=== PATIENT | male | born 1990 | race Caucasian/White ===

== ENCOUNTER 2016-08-18 18:43 | Observation (INO) | payer BC ==
--- NOTE | 2016-08-18 19:13 | ED ---
Abdominal Pain/Male - HPI Summary HPI Summary: 26M presents with RLQ pain since 11am. He has never had this pain before. His last meal was at 1pm. He admits to anorexia. He states the pain started in epigastric and moved to right lower quadrant. He denies any n/v/d. He denies any dysuria or hematuria. His last BM was yesterday. Pain is only bad when he moves. - History of Current Complaint Chief Complaint: EDAbdPain Stated Complaint: ABD PAIN Time Seen by Provider: 08/18/16 18:57 Pain Intensity: 7 - Allergies/Home Medications Allergies/Adverse Reactions: Allergies Allergy/AdvReac Type Severity Reaction Status Date / Time No Known Allergies Allergy Verified 08/18/16 18:45 Home Medications: Home Medications QUEtiapine TAB* [SEROquel TAB*] 50 mg PO BEDTIME 08/18/16 [History Confirmed ] lamoTRIgine TAB(*) [LaMICtal TAB(*)] 25 mg PO BID 08/18/16 [History Confirmed ] PMH/Surg Hx/FS Hx/Imm Hx Endocrine/Hematology History: Denies: Hx Anticoagulant Therapy Cardiovascular History: Denies: Hx Hypertension Psychiatric History: Reports: Hx Bipolar Disorder Infectious Disease History: No Infectious Disease History: Denies: Traveled Outside the [place] in Last 30 Days - Family History Known Family History: Positive: Hypertension - Social History Alcohol Use: Occasionally Substance Use Type: Reports: None Smoking Status (MU): Never Smoked Tobacco Review of Systems Negative: Fever Negative: Chest Pain Negative: Shortness Of Breath Positive: Abdominal Pain - RLQ. Negative: Vomiting, Diarrhea, Nausea All Other Systems Reviewed And Are Negative: Yes Physical Exam Triage Information Reviewed: Yes Vital Signs On Initial Exam: Initial Vitals Temp Pulse Resp BP Pulse Ox 98.2 F 98 18 137/88 100 08/18/16 18:44 08/18/16 18:44 08/18/16 18:44 08/18/16 18:44 08/18/16 18:44 Vital Signs Reviewed: Yes Appearance: Positive: Well-Appearing Skin: Positive: Warm, Dry Head/Face: Positive: Normal Head/Face Inspection Eyes: Positive: Normal, Conjunctiva Clear ENT: Positive: Normal ENT inspection, Pharynx normal, TMs normal Respiratory/Lung Sounds: Positive: Clear to Auscultation, Breath Sounds Present Cardiovascular: Positive: Normal, RRR Abdomen Description: Positive: Soft, Other: - moderate tenderness in RLQ, pos obturator sign and rovsing sign, no rebound Bowel Sounds: Positive: Present Diagnostics - Vital Signs Vital Signs Temp Pulse Resp BP Pulse Ox 08/18/16 18:44 98.2 F 98 18 137/88 100 - Laboratory Result Diagrams: 08/18/16 19:45 08/18/16 19:45 Lab Statement: Any lab studies that have been ordered have been reviewed, and results considered in the medical decision making process. - CT ab CT Interpretation: Positive (See Comments) - CT of the pelvis demonstrates a hyperemic tubular fluid-filled structure in the right lower quadrant consistent with a fluid-filled appendix. Findings are suggestive of acute appendicitis. No evidence of periappendiceal abscess is noted. No dilated loops of bowel are noted. CT Interpretation Completed By: Radiologist Re-Evaluation - Re-Evaluation First Eval Change: Unchanged Comment: does not want any pain medication Abdominal Pain Fem Course/Dx - Course Course Of Treatment: 26M present with RLQ today. admits to anorexia. denies any fever, n/v/d. tenderness to RLQ on exam. pos rovsings. wbc elevated. CT appenditis. dr hill to take to OR - Diagnoses Differential Diagnosis/HQI/PQRI: Appendicitis, Pancreatitis, Urinary Tract Infection Provider Diagnoses: Acute appendicitis Discharge - Discharge Plan Condition: Good Disposition: ADMITTED TO [facility]
[2016-08-18] MEDS: NS 0.9% 1000 ML* 2,000 ML IV ONE ×2 (19:55→21:43)
[2016-08-18 19:56] LABS: Hematocrit 46 % (42-52); Hemoglobin 16.1 g/dl (14.0-18.0); Mean Corpuscular HGB Conc 35 g/dl (31-36); Mean Corpuscular Hemoglobin 30 pg (27-31); Mean Corpuscular Volume 85 fL (80-94); Mean Platelet Volume 7 um3 (7.4-10.4); Red Blood Count 5.43 10^6/ul (4.0-5.4); Red Cell Distribution Width 13 % (10.5-15); White Blood Count 14.1 10^3/ul (3.5-10.8)
[2016-08-18 20:08] LABS: Urine Bilirubin Negative (Negative); Urine Glucose Negative (Negative); Urine Nitrite Negative (Negative)
[2016-08-18 20:12] LABS: Albumin 4.8 g/dL (3.2-5.2); BUN/Creatinine Ratio 17.8 (8-20); Calcium 9.7 mg/dL (8.6-10.3); EGFR African American 132.2 (>60); EGFR Non-African American 102.8 (>60); Globulin 3.2 g/dL (2-4); Potassium 3.7 mmol/L (3.5-5.0); Total Bilirubin 0.6 mg/dL (0.2-1.0)
[2016-08-18] MEDS ORDERED: Iohexol 300* (CONTRAST) 10 ML SDV IV ONE (20:20)
--- NOTE | 2016-08-18 21:47 | RAD ---
Indication: Right lower quadrant pain. Contrast: Administered 127.0 ml of OMNIPAQUE 300 mgi/ml CT of the abdomen and pelvis was performed after oral and IV contrast administration. Coronal and sagittal reconstructed images were obtained. The lung bases demonstrate no pleural fluid, nodules or masses. Heart is of normal size without evidence of pericardial effusion. Liver is normal in size. No focal lesions or intrahepatic ductal dilatation is noted. The gallbladder demonstrates no calcified gallstones. No pericholecystic fluid or wall thickening is identified. The pancreas demonstrates no mass or pancreatic ductal dilatation. The spleen is normal in size. No adrenal masses are noted. The kidneys demonstrate symmetric nephrograms without focal lesions. Aorta and inferior vena cava are unremarkable. CT of the pelvis demonstrates a hyperemic tubular fluid-filled structure in the right lower quadrant consistent with a fluid-filled appendix. Findings are suggestive of acute appendicitis. No evidence of periappendiceal abscess is noted. No dilated loops of bowel are noted. Diverticulosis of the sigmoid colon is noted. Urinary bladder is unremarkable. No hernias are noted. The bony structures demonstrates bilateral spondylolysis of L5. IMPRESSION: Findings consistent with acute appendicitis. MAX Fermin was notified of the results at 9:43 PM.
[2016-08-18] MEDS ORDERED: Bupivacaine 0.25% EPI 200,000* 30 ML SDV ONE (22:13)
[2016-08-18] MEDS ORDERED: ceFAZolin 2 GM PREMIX(*) 2 GM/50 ML BAG IVPB ONE (22:39)
[2016-08-18] MEDS ORDERED: metroNIDAZOLE IV 500 MG/100ML* 500 MG/100 ML BAG IVPB ONE (22:39)
[2016-08-18] MEDS ORDERED: HYDROmorphone* 1 MG/ML 1 ML SYR ONE (22:49)
[2016-08-18] MEDS ORDERED: Midazolam* 1 MG/ML 2 ML VIAL (2 MG) ONE (22:50)
[2016-08-18] MEDS ORDERED: fentaNYL* 50 MCG/ML 5 ML VIAL (250 MCG VIAL) ONE (22:50)
[2016-08-19] MEDS ORDERED: Ondansetron INJ* 2 MG/ML VIAL IV PRN ×2 (00:25→01:47)
[2016-08-19] MEDS ORDERED: fentaNYL* 50 MCG/ML 2 ML VIAL (100 MCG VIAL) IV PRN (00:25)
[2016-08-19] MEDS ORDERED: DiMENhydriNATE IV* 50 MG/ML VIAL IV PUSH PRN (00:25)
[2016-08-19] MEDS ORDERED: PROCHLORPERAZINE INJ 5 MG/ML 2 ML VIAL IV PRN (00:25)
[2016-08-19] MEDS ORDERED: HYDROmorphone* 1 MG/ML 1 ML SYR IV PRN ×2 (00:25→01:47)
[2016-08-19] MEDS ORDERED: Scopolamine 1.5 mg* PATCH TRANSDERM PRN (00:25)
[2016-08-19] MEDS ORDERED: HYDROmorphone* 1 MG/ML 1 ML SYR ONE ×2 (00:28→02:24)
[2016-08-19] MEDS ORDERED: Ibuprofen TAB* 600 MG PO PRN (01:47)
[2016-08-19] MEDS ORDERED: Acetaminophen TAB* 325 MG PO PRN (01:47)
[2016-08-19] MEDS ORDERED: oxyCODONE/Acetamin 5/325 MG* TAB PO PRN (01:47)
--- NOTE | 2016-08-19 01:47 | SURGPN ---
Brief Operative Note - Surgery Procedures: Pre-OP Diagnoses: acute appendicitis Post-op Diagnosis: same Procedure: Laparoscopic appendectomy Surgeon: Jeff Asst: none Anethesia: JACK Santacruz EBL: minimal IVF: crystalloid Specimen: appendix Drains: none
[2016-08-19] MEDS ORDERED: fentaNYL* 50 MCG/ML 2 ML VIAL (100 MCG VIAL) ONE (02:24)
[2016-08-19] MEDS ORDERED: DiMENhydriNATE IV* 50 MG/ML VIAL ONE (02:25)
[2016-08-19] MEDS ORDERED: Scopolamine 1.5 mg* PATCH ONE (02:33)
[2016-08-19] MEDS ORDERED: Ibuprofen TAB* 600 MG ONE (03:23)
[2016-08-19] MEDS ORDERED: Ondansetron INJ* 2 MG/ML VIAL ONE (03:23)
--- NOTE | 2016-08-19 03:28 | HP ---
HISTORY AND PHYSICAL: DATE OF ADMISSION: 08/18/16 HISTORY OF PRESENT ILLNESS: Mr. Aguirre is a 26-year-old gentleman who presents to [facility] Emergency Room with complaints of abdominal pain. The patient describes onset at 10 a.m. this morning, it was accompanied by decreased appetite; however, the patient did go and eat and it only made him feel worse. Pain was diffuse and by 1 o'clock, it was mostly in the right lower quadrant. It was accompanied with chills and the anorexia. No change in bowel habits. The patient did not vomit. Denies any headaches. No shortness of breath. The patient denies any previous similar symptoms. Pain is relieved with narcotics and lying still, it is worse with sitting up and laughing. PAST MEDICAL HISTORY: Bipolar disorder. PAST SURGICAL HISTORY: Left shoulder surgery. MEDICATIONS: 1. Seroquel. 2. Lamictal. ALLERGIES: He has no known drug allergies. FAMILY HISTORY: Noncontributory. No family history of ulcerative colitis or Crohn's disease. SOCIAL HISTORY: Does not smoke, does not drink or do IV drugs. He works at a [employer]. REVIEW OF SYSTEMS: He denies any shortness of breath. No chest pain, no cardiovascular disease, no cerebrovascular disease. Psychiatric disease as described. No headaches. No dysuria. GI symptoms as described. No endocrine disorders. Good exercise tolerance. No bleeding or clotting disorders. PHYSICAL EXAMINATION GENERAL: Alert and oriented x3, in no apparent distress. VITAL SIGNS: Temperature 100.2, blood pressure 110/74 with a pulse rate of 98. HEENT: Normocephalic, atraumatic. Sclerae anicteric. Mucous membranes are moist. NECK: No lymphadenopathy. LUNGS: Clear. ABDOMEN: Soft, obese. Tender in the right lower quadrant. Positive Rovsing sign. No hernias or masses noted. Mild CVA tenderness on the right. EXTREMITIES: Within normal limits. No cyanosis, clubbing, or edema. Negative psoas sign. DIAGNOSTIC STUDIES/LAB DATA: Reviewed, elevated white blood cell count of 14.1. Chemistry panel reviewed and within normal limits including lipase. Urinalysis normal as well. CAT scan reviewed, both images and the report and consistent with acute appendicitis, dilated appendix, does not appear perforated. He does have diverticulosis. No free air or free fluid. IMPRESSION: Acute appendicitis. The patient with mild systemic inflammatory response syndrome response. RECOMMENDATIONS: Laparoscopic appendectomy. I outlined the details of the procedure going over the risks, benefits, alternatives. I spoke of the possible complications, which include but not limited to bleeding, infection, need for open procedure, need for additional procedures, abscess formation, injury to adjacent organs and the patient agreed and signed consent. He is marked and we will start antibiotics now and get him to the operating room. CC: Yady Green NP; [facility]* [id number]/[facility] #: [id number] MTDD
[2016-08-19] MEDS ORDERED: lamoTRIgine TAB(*) 25 MG PO SCH (09:00)
[2016-08-19 12:49] VITALS: BP 118/49
[2016-08-19] MEDS ORDERED: QUEtiapine TAB* 25 MG PO SCH (21:00)
[2016-08-22] MEDS ORDERED: Scopolomine PATCH Remove* 1 NOTE MISC PATCH OFF ONE (00:25)
--- NOTE | 2016-09-05 04:00 | DS ---
DISCHARGE SUMMARY: DATE OF ADMISSION: 08/19/16 DATE OF DISCHARGE: 08/19/16 HISTORY: Mr. Aguirre is a 26-year-old gentleman admitted to the emergency room with diagnosis of acute appendicitis, underwent laparoscopic appendectomy on 08/19/16, spend the overnight in the hospital and was discharged home the following morning for followup in the office. [id number]/[facility] #: [id number] MTDD
--- NOTE | 2016-09-05 04:09 | OP ---
DATE OF OPERATION: 08/19/16 - ROOM #348 DATE OF : 89 SURGEON: Lambert Aguilar MD NUTRITION PARTNER: None. ANESTHESIA: General. ANESTHESIOLOGIST: Dr. Santacruz. PRE-OP DIAGNOSIS: Acute appendicitis. POST-OP DIAGNOSIS: Acute appendicitis. OPERATIVE PROCEDURE: Laparoscopic appendectomy. ESTIMATED BLOOD LOSS: Minimal. FLUIDS: Crystalloid fluid given, minimal. SPECIMENS: Appendix non-perforated. DRAINS: None. DESCRIPTION OF PROCEDURE: The patient was identified in the preoperative area, brought to the OR, placed on the operating table in a supine position. Preoperative antibiotics were given. Sequential devices were placed on bilateral lower extremities. General anesthesia was induced. The patient's abdomen was clipped of hair, prepped and draped in a standard surgical fashion. A time-out was performed. Folds of the umbilicus were elevated anteriorly and a Veress needle was inserted into the abdominal cavity, which was allowed to insufflate to a pressure of 15 mmHg. The patient tolerated the insufflation well. A periumbilical incision was made and a 12 mm trocar inserted. Laparoscope was inserted through this. There was no evidence of injury from the trocar insertion or from the Veress needle. Two additional 5 mm trocars were then inserted. Attention was turned towards the right lower quadrant. Cecum was identified along with the appendix. Appendix was indurated, but non-perforated. It was freed up and moved anteriorly. A window was made to the base of the appendix, and a 45 mm correia CHLOÉ stapling device was fired across this. Mesoappendix, the appendix were taken from cecum through healthy tissues using a 45 mm gunderson CHLOÉ stapling device. It was placed in the endoscopic retrieval bag and brought out through the 12 mm port. The abdomen was allowed to collapse. The trocar was removed under direct vision, and all three skin incisions were reapproximated with 4-0 Monocryl subcuticular sutures. Steri-Strips and sterile dressings were applied. The patient tolerated the procedure well and was then transferred to the PACU. [id number]/[facility] #: [id number] JOSE M
== END 2016-08-19 13:33 | disposition home or self-care (01) ==
LOC: ED 18:43 → OR 22:20 → SSU 08-19 01:47
PROVIDERS: ADMIT Surgery; ATTEND Surgery
PROC: 0DTJ4ZZ Resection of Appendix, Percutaneous Endoscopic Approach (ICD-10-PCS; principal; 2016-08-19)
DX: K35.80 Unspecified acute appendicitis (principal); F31.9 Bipolar disorder, unspecified; Z79.899 Other long term (current) drug therapy
CPT/HCPCS: 36415; 74177; 80053; 81003; 83690; 85025; 86141; 88304; 96374; 96375; 99284; A9270-GY; C1776; G0378; J0690; J1170; J1240; J2250; J2405; J3010; Q9967